=== PATIENT | male | born 1995 | race African-American/Black ===

== ENCOUNTER 2022-10-28 12:55 | Emergency (ER) | payer SELFPAY ==
[2022-10-28] MEDS ORDERED: Penicillin V Potassium 500 MG Tab PO STA (13:20)
[2022-10-28] MEDS ORDERED: Lidocaine 2% Viscous Solution 15 ML UD PO ONE (13:20)
[2022-10-28] MEDS ORDERED: Benzocaine 20% Topical Spray UD MUCMEM ONE (13:20)
== END 2022-10-28 14:17 | disposition home or self-care (01) ==
LOC: MW.ED 12:55
DX: K04.7 Periapical abscess without sinus (principal)
CPT/HCPCS: 99283; A9270